=== PATIENT | female | born 1990 | race Caucasian/White ===

== ENCOUNTER 2018-11-06 02:34 | Emergency (ER) | payer BC ==
[~2018-11-06] VITALS: Ht 162.6 cm; Wt 81.6 kg
[2018-11-06 02:45] VITALS: BP 141/87
[2018-11-06] MEDS ORDERED: cefTRIAXone SOD 1,000 MG VL IM ONE (03:00)
[2018-11-06] MEDS ORDERED: HYDROcodone-ACET 5/325MG TAB PO ONE (03:00)
[2018-11-06] MEDS ORDERED: DexAMETHasone SOD PHOS 10MG/1ML VIAL INJ IM ONE (03:00)
== END 2018-11-06 03:48 | disposition home or self-care (01) ==
LOC: ER 02:37
DX: J06.9 Acute upper respiratory infection, unspecified (principal); J40 Bronchitis, not specified as acute or chronic; H10.9 Unspecified conjunctivitis
CPT/HCPCS: 96372; 99283; J0696; J1100